=== PATIENT | male | born 1955 | race Hispanic/Latino ===

== ENCOUNTER 2017-12-16 22:24 | Emergency (ER) | payer MEDICARE, BC ==
[2017-12-16 22:35] VITALS: BP 150/84; RESP 18; TEMP 97.2; O2SAT 99
--- NOTE | 2017-12-16 23:10 | ED PDOC ---
- ECG O2 Sat by Pulse Oximetry: 99 Disposition - Disposition
--- NOTE | 2017-12-16 23:23 | ED PDOC ---
HPI: Psych/Substance Abuse Time Seen by Provider: 12/16/17 22:54 Chief Complaint (Nursing): Anxiety Chief Complaint (Provider): Anxiety History Per: Patient History/Exam Limitations: no limitations Onset/Duration Of Symptoms: Other (x1 week) Current Symptoms Are (Timing): Still Present Associated Symptoms: Anxiety. denies: Depression, Suicidal Thoughts Additional Complaint(s): 62 year old male presents to the ED complaining of anxiety for 1 week. Patient reports he feels anxious and suffers from anxiety for many years. He states he took Klonopin in the past but was recently prescribed Valium which he is taking daily but did not take it today. Denies Chest pain, Shortness of breath, headache, fever, SI, HI, or depression. He reports he has been hospitalized for psychiatric problems and suicidal behavior and indicates he lives by himself which contributes to his anxiety. PMD: Dr. Edwards Past Medical History Reviewed: Historical Data, Nursing Documentation, Vital Signs Vital Signs: Last Vital Signs Temp 97.2 F L 12/16/17 22:32 Pulse 111 H 12/16/17 22:32 Resp 18 12/16/17 22:32 BP 150/84 12/16/17 22:32 Pulse Ox 99 12/16/17 23:10 - Medical History PMH: Anxiety, Depression, HTN - Surgical History Surgical History: Appendectomy - Family History Family History: States: Unknown Family Hx - Social History Current smoker - smoking cessation education provided: No Alcohol: None Drugs: Denies - Allergies Allergies/Adverse Reactions: Allergies Allergy/AdvReac Type Severity Reaction Status Date / Time No Known Allergies Allergy Verified 12/16/17 22:32 Review of Systems ROS Statement: Except As Marked, All Systems Reviewed And Found Negative Constitutional: Negative for: Fever Cardiovascular: Negative for: Chest Pain Respiratory: Negative for: Shortness of Breath Neurological: Negative for: Headache Psych: Positive for: Anxiety. Negative for: Suicidal ideation, Other ( Homicidal ideation) Physical Exam - Reviewed Nursing Documentation Reviewed: Yes Vital Signs Reviewed: Yes - Physical Exam Appears: Positive for: Non-toxic, No Acute Distress Head Exam: Positive for: ATRAUMATIC, NORMAL INSPECTION, NORMOCEPHALIC Skin: Positive for: Normal Color, Warm, Dry Eye Exam: Positive for: Normal appearance Neck: Positive for: Normal, Painless ROM Cardiovascular/Chest: Positive for: Regular Rate, Rhythm. Negative for: Tachycardia (mild) Respiratory: Positive for: Normal Breath Sounds. Negative for: Wheezing, Respiratory Distress Extremity: Positive for: Normal ROM Neurologic/Psych: Positive for: Alert, Oriented, Gait (steady). Negative for: Motor/Sensory Deficits - ECG O2 Sat by Pulse Oximetry: 99 (RA) Pulse Ox Interpretation: Normal - Progress Re-evaluation Time: 00:35 Condition: Re-examined, Improved Medical Decision Making Medical Decision Making: Initial Impression: Anxiety Initial Plan: --ECG --Crisis --Valium 10mg PO Patient came by ambulance but ambulated into the emergency department. 2129 Patient refuses EKG. 29 Patient is cleared by crisis. 29 Patient is stable for discharge. Patient given discharge instructions. Patient understands and agrees with discharge plan. All questions and concerns addressed. Patient has no questions or concerns. Patient would like to be discharged. Scribe Attestation: Documented by Tutu Junior acting as a scribe for Mishel Bustos MD. Provider Scribe Attestation: All medical record entries made by the Scribe were at my direction and personally dictated by me. I have reviewed the chart and agree that the record accurately reflects my personal performance of the history, physical exam, medical decision making, and the department course for this patient. I have also personally directed, reviewed, and agree with the discharge instructions and disposition. Disposition - Clinical Impression Clinical Impression: Anxiety - Patient ED Disposition Is Patient to be Admitted: No Doctor Will See Patient In The: Office Counseled Patient/Family Regarding: Studies Performed, Diagnosis, Need For Followup - Disposition Referrals: [facility] [Outside] Disposition: Routine/Home Disposition Time: 00:37 Condition: GOOD Additional Instructions: PATRIC CHAHAL, thank you for letting us take care of you today. Your provider was Mishel Bustos MD and you were treated for PSYCH EVAL. The emergency medical care you received today was directed at your acute symptoms. If you were prescribed any medication, please fill it and take as directed. It may take several days for your symptoms to resolve. Return to the Emergency Department if your symptoms worsen, do not improve, or if you have any other problems. Please contact your doctor or call one of the physicians/clinics you have been referred to that are listed on the Patient Visit Information form that is included in your discharge packet. Bring any paperwork you were given at discharge with you along with any medications you are taking to your follow up visit. Our treatment cannot replace ongoing medical care by a primary care provider outside of the emergency department. Thank you for allowing the [facility] team to be part of your care today. If you had an X-Ray or CT scan: A Radiologist will review the ED reading if any change in treatment is needed we will contact you. If you had a blood, urine, or wound culture: It will take several days for the results, if any change in treatment is needed we will contact you. If you had an STI test: It will take 48 hours for the results. Please call after 1 week if you have not heard back. Instructions: Anxiety, Adult (DC)
[2017-12-17 00:50] VITALS: PULSE 85
== END 2017-12-17 01:06 | disposition home or self-care (01) ==
LOC: H.ER 22:24
DX: F41.9 Anxiety disorder, unspecified (principal); I10 Essential (primary) hypertension; Z86.59 Personal history of other mental and behavioral disorders

== ENCOUNTER 2017-12-19 05:04 | Inpatient (IN) | payer BC, MEDICARE ==
[2017-12-19] MEDS ORDERED: Apap-Butalbital-Caffeine 325-50-40mg Tab PO STA (05:40)
--- NOTE | 2017-12-19 06:11 | ED PDOC ---
HPI: Psych/Substance Abuse Time Seen by Provider: 12/19/17 05:10 Chief Complaint (Nursing): Psychiatric Evaluation Chief Complaint (Provider): Crisis evaluation History Per: Patient History/Exam Limitations: no limitations Onset/Duration Of Symptoms: Hrs Additional Complaint(s): Saeid Gillette is a 62 year old male, with a past medical history of anxiety and migraines, who was brought to the emergency department by EMS after he made suicidal statements prior to arrival. Patient presents to the emergency department with scattered and fragmented thoughts. He is rambling about his who he states is psychiatrically ill and is missing. Patient states he's been calling [employer] ([email or web address] for the last 9 days asking for help. Tonight patient was reported knocking in neighbors home at 04:30 and made a suicidal statement which he states only did out of frustration. No other medical complaints. Of note, patient was seen for a similar presentation x3 days ago. PMD: None provided. Past Medical History Reviewed: Historical Data, Nursing Documentation, Vital Signs Vital Signs: Last Vital Signs Temp 98.8 F 12/19/17 05:06 Pulse 108 H 12/19/17 05:06 Resp 21 12/19/17 05:06 BP 167/90 H 12/19/17 05:06 Pulse Ox 98 12/19/17 05:06 - Medical History PMH: Anxiety, Depression, HTN, Migraine Denies: Diabetes, Hepatitis, HIV, Seizures, Sexually Transmitted Disease - Surgical History Surgical History: Appendectomy - Family History Family History: States: Unknown Family Hx - Social History Current smoker - smoking cessation education provided: No Alcohol: None Drugs: Denies - Allergies Allergies/Adverse Reactions: Allergies Allergy/AdvReac Type Severity Reaction Status Date / Time No Known Allergies Allergy Verified 12/16/17 22:32 Review of Systems ROS Statement: Except As Marked, All Systems Reviewed And Found Negative Psych: Positive for: Suicidal ideation (possible) Physical Exam - Reviewed Nursing Documentation Reviewed: Yes Vital Signs Reviewed: Yes - Physical Exam Appears: Positive for: No Acute Distress (poor state of hygiene) Head Exam: Positive for: ATRAUMATIC, NORMAL INSPECTION, NORMOCEPHALIC Skin: Positive for: Normal Color, Warm, Dry Eye Exam: Positive for: Normal appearance, EOMI, PERRL Neck: Positive for: Painless ROM Cardiovascular/Chest: Positive for: Regular Rate, Rhythm. Negative for: Murmur Respiratory: Positive for: Normal Breath Sounds. Negative for: Respiratory Distress Gastrointestinal/Abdominal: Positive for: Normal Exam, Soft. Negative for: Tenderness Back: Positive for: Normal Inspection Extremity: Positive for: Normal ROM (upper and lower extremities). Negative for : Deformity, Swelling Neurologic/Psych: Positive for: Alert, Oriented - ECG O2 Sat by Pulse Oximetry: 98 (RA) Pulse Ox Interpretation: Normal Medical Decision Making Medical Decision Making: Time: 05:10 Initial Impression: 62 y/o male with possible delusional thoughts Initial Plan: --EKG --Alcohol serum --CMP --Drug screen, urine --Crisis evaluation --Urine dipstick --CBC w/ differential --Fioricet 1 tab PO --Valium 10 mg PO --Urinalysis --Reevaluation 07:00 -Patient will be signed out to Dr. Umana. ----- Scribe Attestation: Documented by Valentino Mccollum, acting as a scribe for Storm Mcgraw MD. Provider Scribe Attestation: All medical record entries made by the Scribe were at my direction and personally dictated by me. I have reviewed the chart and agree that the record accurately reflects my personal performance of the history, physical exam, medical decision making, and the department course for this patient. I have also personally directed, reviewed, and agree with the discharge instructions and disposition. Disposition - Clinical Impression Clinical Impression: Delusional disorder - Patient ED Disposition Is Patient to be Admitted: Transfer of Care - Disposition Disposition: Transfer of Care Disposition Time: 07:00 Condition: FAIR Forms: [facility] (Macedonian) Patient Signed Over To: Kiran Umana III
[2017-12-19] MEDS ORDERED: Apap-Butalbital-Caffeine 325-50-40mg Tab ONE (06:35)
--- NOTE | 2017-12-19 06:58 | ED PDOC ---
- Laboratory Results Result Diagrams: 12/19/17 06:22 12/19/17 06:22 - ECG O2 Sat by Pulse Oximetry: 98 (RA) Medical Decision Making Medical Decision Making: received 7am pending crisis evaluation medically stable for crisis evaluation/ admission 830a per crisis will be screened by [facility] labs again reviewed and unremarkable CXR negative per radiologist Patient remains anxious, labile mood, required additional dose benzo 140pm for anxiolysis. [facility] screen performed but patient signed into 3N for voluntary stay, admit Dr Tovar per dye house worker Disposition - Clinical Impression Clinical Impression: Psychosis - POA Present On Arrival: None - Disposition Disposition: Admitted as In-Patient Disposition Time: 13:30 Condition: FAIR
[2017-12-19 07:08] LABS: BASO # 0.1 K/uL (0.0-0.2); BASO % 0.8 % (0.0-2.0); EOS # 0.3 K/uL (0.0-0.7); EOS % 3.1 % (0.0-4.0); HEMOGLOBIN 17.4 g/dL (12.0-18.0); LYMPH # 1.5 K/uL (1.0-4.3); LYMPH % 16.1 % (20.0-40.0); MEAN CORPUSCULAR HEMOGLOBIN 30.9 pg (27.0-31.0); MEAN CORPUSCULAR HGB CONC 34.7 g/dL (33.0-37.0); MONO # 0.6 K/uL (0.0-0.8); MONO % 6.6 % (0.0-10.0); NEUT # 6.6 K/uL (1.8-7.0); NEUT % 73.4 % (50.0-75.0); NRBC % 0.6 % (0.0-0.0); RBC 5.62 Mil/uL (4.40-5.90); RED CELL DISTRIBUTION WIDTH 13.6 % (11.5-14.5); WHITE BLOOD COUNT 9.1 K/uL (4.8-10.8)
[2017-12-19 07:15] LABS: ALB/GLOB RATIO 1.3 (1.0-2.1); ALBUMIN 4.5 g/dL (3.5-5.0); ALT/SGPT 25 U/L (21-72); AST/SGOT 32 U/L (17-59); BLOOD UREA NITROGEN 15 mg/dl (9-20); CALCIUM 10.4 mg/dL (8.4-10.2); GFR NON-AFRICAN AMERICAN > 60
--- NOTE | 2017-12-19 09:51 | CARD ---
APPROVED REPORT Date of service: 12/19/2017 EKG Measurement Heart [id number] <Conclusion> Sinus rhythm with frequent premature ventricular complexes Left axis deviation Abnormal ECG
--- NOTE | 2017-12-19 10:34 | RAD ---
Date of service: 12/19/2017 HISTORY: Medical clearance COMPARISON: No prior. FINDINGS: LUNGS: The lungs are well inflated and clear. PLEURA: No significant pleural effusion identified, no pneumothorax apparent. CARDIOVASCULAR: Normal. OSSEOUS STRUCTURES: No significant abnormalities. VISUALIZED UPPER ABDOMEN: Normal. OTHER FINDINGS: None. IMPRESSION: No acute findings.
[2017-12-19 11:01] LABS: URINE BILIRUBIN NEGATIVE (NEGATIVE); URINE BLOOD NEGATIVE (NEGATIVE); URINE CLARITY SLIGHTY-CLOUDY (Clear); URINE COLOR YELLOW (YELLOW); URINE GLUCOSE (UA) NEG (Normal); URINE LEUKOCYTE ESTERASE NEG Leu/uL (Negative); URINE PROTEIN 30 mg/dL (NEGATIVE); URINE UROBILINOGEN 0.2-1.0 mg/dL (0.2-1.0)
[2017-12-19 11:14] LABS: BARBITURATES, UR POSITIVE (NEGATIVE); BENZODIAZEPINES, UR POSITIVE (NEGATIVE); OPIATES, UR NEGATIVE (NEGATIVE); PHENCYCLIDINE, UR NEGATIVE (NEGATIVE)
[2017-12-19 15:46] VITALS: O2SAT 97
[2017-12-19] MEDS ORDERED: Magnesium Hydroxide Susp 30 ml UD PO PRN (17:06)
[2017-12-19] MEDS ORDERED: Alum-Mag Hydrox-Simethicone Susp (30 mL) PO PRN (17:06)
--- NOTE | 2017-12-19 17:55 | PCM.BM ---
Treatment Plan Problems - Problems identified on initial assessmt Problem 1 Date Initiated: 12/19/17 Assessment reference: NA Status: Active Problem 2 Date Initiated: 12/19/17 Assessment reference: NA Status: Active Problem 3 Date Initiated: 12/19/17 Assessment reference: NA Status: Active Problem 4 Date Initiated: 12/19/17 Assessment reference: NA Status: Active Treatment assets and liabiliti Patient Assests: cooperative, ADL independent, good support system Patient Liabilities: medical problems - Milieu Protocol Maintain good personal hygiene: daily Encourage regular showers, daily Remind patient to perform daily oral care, daily Assist patient to perform ADL's Maintain personal safety: every shift Educate patient to report safety concerns to staff, every shift Monitor environment for contraband/sharps Medication safety: Monitor for expected outcome, potential side effects: every shift, Assess barriers to learning: every shift, Assess readiness for medication education: every shift Family Contact Family involvement: Family/SO is involved
[2017-12-19] MEDS: Hydrocortisone 0.5% OINT TOP SCH (22:56)
[2017-12-20 06:22] LABS: HDL CHOLESTEROL 34 MG/DL (30-70)
[2017-12-20 06:33] LABS: LDL CHOLESTEROL 129 mg/dL (0-129)
[2017-12-20] MEDS: Hydrocortisone 0.5% OINT TOP SCH ×2 (08:11→21:51)
[2017-12-20] MEDS ORDERED: DiphenhydrAMINE 50 mg/ml Inj IM PRN (10:29)
[2017-12-20] MEDS ORDERED: ASPIRIN PO PRN (10:47)
[2017-12-20] MEDS ORDERED: BUTALBITAL PO PRN (10:47)
[2017-12-20] MEDS ORDERED: CAFFEINE PO PRN (10:47)
--- NOTE | 2017-12-20 10:47 | CP.PCM.CON ---
History of Present Illness - History of Present Illness History of Present Illness: Pt states that he would like to talk only about his medical condition so I could restart him on his meds . He denies having any Psychiatric condition. Hx also obtained from chart . Chief Complaint : referred by Psych for mgt of medical problems. HPI: 62 y/o gent with hx of HTN, Hyperlipidemia, Migraine BALL, Glaucoma, Acne Rosacea , Herpes labialis was brought in by EMS due to bizarre behaviour. Accdg to med records - he has been calling [place] police several times looking for his who he said had Psychiatric problems . He also had stated that he had some suicidal ideation. Patient denies any Psych problem and also denies any suicidal ideation. He states that he would like to be restarted on his home meds - he has a slight Migraine headache at present and would like some Fioricet. He denies any CP , no SOB, no abd pain, no focal neurologic deficit. he denies any other pain. Full Code , Surrogate Decision maker - Audra . He states he also has a daughter who lives on [address] PMD : Dr Edwards from [place] Review of Systems - Review of Systems All systems: reviewed and no additional remarkable complaints except - Constitutional Constitutional: Headache. absent: Chills, Fever, Weakness - EENT Eyes: absent: Change in Vision Nose/Mouth/Throat: absent: Nasal Congestion - Cardiovascular Cardiovascular: absent: Chest Pain, Palpitations - Respiratory Respiratory: absent: Cough, Dyspnea - Gastrointestinal Gastrointestinal: absent: Abdominal Pain, Diarrhea, Nausea, Vomiting - Genitourinary Genitourinary: absent: Dysuria, Hematuria, Urinary Hesitance - Musculoskeletal Musculoskeletal: absent: Abnormal Gait, Muscle Weakness - Integumentary Integumentary: Acne, Rash - Neurological Neurological: Headaches. absent: Focal Weakness, Syncope - Psychiatric Psychiatric: Behavioral Changes, Depression - Endocrine Endocrine: absent: Polydipsia, Polyphagia, Polyuria - Hematologic/Lymphatic Hematologic: absent: Easy Bleeding, Easy Bruising Past Patient History - Infectious Disease Hx of Infectious Diseases: None - Tetanus Immunizations Tetanus Immunization: Unknown - Past Medical History & Family History Past Medical History?: Yes Past Family History: Reviewed and not pertinent Pertinent Family History: Father - Alcoholic - Past Social History Smoking Status: Never Smoked Chewing Tobacco Use: No Cigar Use: No Occupation: owns a [employer] Alcohol: None Drugs: Denies Home Situation {Lives}: With Family - CARDIAC Hx Hypercholesterolemia: Yes Hx Hypertension: Yes - PULMONARY Hx Respiratory Disorders: No - NEUROLOGICAL Hx Neurological Disorder: No - HEENT Hx HEENT Problems: Yes Hx Glaucoma: Yes - RENAL Hx Chronic Kidney Disease: No - ENDOCRINE/METABOLIC Hx Endocrine Disorders: No - HEMATOLOGICAL/ONCOLOGICAL Hx Blood Disorders: No - INTEGUMENTARY Hx Dermatological Problems: Yes Other/Comment: Acne Rosacea - MUSCULOSKELETAL/RHEUMATOLOGICAL Hx Musculoskeletal Disorders: No Hx Falls: Yes (had fallen 10 days ago in [facility]) - GASTROINTESTINAL Hx Gastrointestinal Disorders: No - GENITOURINARY/GYNECOLOGICAL Hx Genitourinary Disorders: No - PSYCHIATRIC Hx Anxiety: Yes Hx Depression: Yes Hx Substance Use: No - SURGICAL HISTORY Hx Surgeries: Yes Hx Appendectomy: Yes Other/Comment: Septal Deviation Sx - ANESTHESIA Hx Anesthesia: Yes Hx Anesthesia Reactions: No Hx Malignant Hyperthermia: No Meds Allergies/Adverse Reactions: Allergies Allergy/AdvReac Type Severity Reaction Status Date / Time No Known Allergies Allergy Verified 12/19/17 15:57 - Medications Medications: Current Medications Acetaminophen (Tylenol 325mg Tab) 650 mg PO Q4 PRN PRN Reason: Pain, moderate (4-7) Acyclovir (Zovirax) 400 mg PO BID [facility] Last Admin: 12/20/17 08:09 Dose: 400 mg Al Hydrox/Mg Hydrox/Simethicone (Maalox Plus 30 Ml) 30 ml PO Q4 PRN PRN Reason: Dyspepsia Amlodipine Besylate (Norvasc) 5 mg PO DAILY [facility] Last Admin: 12/20/17 08:10 Dose: 5 mg Diphenhydramine HCl (Benadryl) 50 mg IM Q8 PRN PRN Reason: Agitation Diphenhydramine HCl (Benadryl) 50 mg PO Q8 PRN PRN Reason: Agitation Haloperidol (Haldol) 5 mg PO Q8 PRN PRN Reason: Agitation Haloperidol Lactate (Haldol) 5 mg IM Q8 PRN PRN Reason: Agitation Hydrocortisone (Hydrocortisone 0.5%) 1 applic TOP BID [facility] Last Admin: 12/20/17 08:11 Dose: 1 applic Lorazepam (Ativan) 1 mg PO Q12 [facility] Stop: 01/02/18 21:01 Last Admin: 12/20/17 08:08 Dose: 1 mg Lorazepam (Ativan) 2 mg IM Q8 PRN PRN Reason: Agitation Lorazepam (Ativan) 2 mg PO Q8 PRN PRN Reason: Agitation Losartan Potassium (Cozaar) 50 mg PO DAILY [facility] Last Admin: 12/20/17 08:13 Dose: 50 mg Magnesium Hydroxide (Milk Of Magnesia) 30 ml PO HS PRN PRN Reason: Constipation Risperidone (Risperdal M-Tab) 1 mg PO HS SUKHDEEP Physical Exam - Constitutional Appears: Unkempt, Other (rambled speech) - Head Exam Head Exam: NORMAL INSPECTION, NORMOCEPHALIC - Eye Exam Eye Exam: EOMI, Normal appearance Pupil Exam: NORMAL ACCOMODATION - ENT Exam ENT Exam: Mucous Membranes Moist, Normal External Ear Exam - Neck Exam Neck exam: Positive for: Full Rom. Negative for: Meningismus - Respiratory Exam Respiratory Exam: NORMAL BREATHING PATTERN. absent: Rales, Wheezes, Respiratory Distress - Cardiovascular Exam Cardiovascular Exam: REGULAR RHYTHM, +S1, +S2 - GI/Abdominal Exam GI & Abdominal Exam: Normal Bowel Sounds, Soft. absent: Tenderness - Extremities Exam Extremities exam: Positive for: full ROM, normal capillary refill, pedal pulses present. Negative for: calf tenderness, pedal edema - Back Exam Back exam: FULL ROM. absent: CVA tenderness (L), CVA tenderness (R), vertebral tenderness - Neurological Exam Neurological exam: Alert, CN II-XII Intact, Oriented x3, Reflexes Normal - Psychiatric Exam Psychiatric exam: Flat Affect - Skin Skin Exam: Dry, Normal Color, Warm Results - Vital Signs Recent Vital Signs: Last Vital Signs Temp 97.1 F L 12/20/17 06:00 Pulse 109 H 12/20/17 08:13 Resp 20 12/20/17 06:00 BP 137/90 12/20/17 08:13 Pulse Ox 97 12/19/17 15:45 - Labs Result Diagrams: 12/19/17 06:22 12/19/17 06:22 Labs: Laboratory Results - last 24 hr 12/19/17 12/19/17 12/19/17 06:34 10:40 10:40 POC Glucose (mg/dL) 98 Triglycerides Cholesterol LDL Cholesterol Direct HDL Cholesterol Urine Color Yellow Urine Clarity Slighty-cloudy Urine pH 5.0 Ur Specific Tiro 1.016 Urine Protein 30 Urine Glucose (UA) Neg Urine Ketones Negative Urine Blood Negative Urine Nitrate Negative Urine Bilirubin Negative Urine Urobilinogen 0.2-1.0 Ur Leukocyte Esterase Neg Urine RBC (Auto) < 1 Urine Microscopic WBC 1 Hyaline Casts 3-5 H Urine Opiates Screen Negative Urine Methadone Screen Negative Ur Barbiturates Screen Positive H Ur Phencyclidine Scrn Negative Ur Amphetamines Screen Negative U Benzodiazepines Scrn Positive U Oth Cocaine Metabols Negative U Cannabinoids Screen Negative 12/20/17 05:55 POC Glucose (mg/dL) Triglycerides 165 H Cholesterol 198 LDL Cholesterol Direct 129 HDL Cholesterol 34 Urine Color Urine Clarity Urine pH Ur Specific Tiro Urine Protein Urine Glucose (UA) Urine Ketones Urine Blood Urine Nitrate Urine Bilirubin Urine Urobilinogen Ur Leukocyte Esterase Urine RBC (Auto) Urine Microscopic WBC Hyaline Casts Urine Opiates Screen Urine Methadone Screen Ur Barbiturates Screen Ur Phencyclidine Scrn Ur Amphetamines Screen U Benzodiazepines Scrn U Oth Cocaine Metabols U Cannabinoids Screen - EKG Data EKG Interpreted by: Myself EKG shows normal: Sinus rhythm Rate: Normal - EKG Data Interpretation: Other (PVCs) - Imaging and Cardiology Chest x-ray Status: Report reviewed by me (Neg) Assessment & Plan (1) HTN (hypertension) Status: Chronic Comment: cont Norvasc , Losartan (2) Hyperlipidemia Status: Chronic Comment: cont Pravastatin and Tricor ( home meds) (3) Psychosis Status: Acute Comment: mgt as per Psych (4) Acne rosacea Status: Chronic Comment: Pt's family to bring in home med - facial cream. 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 d/c Zovirax
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
[2017-12-20] MEDS ORDERED: Venlafaxine 37.5 mg ER Cap PO SCH (13:30)
[2017-12-20] MEDS: BRINZOLAMIDE OU SCH ×2 (15:15→21:33)
[2017-12-20] MEDS: BRIMONIDINE OU SCH ×2 (15:15→21:33)
[2017-12-20] MEDS: Multivitamin With Minerals Tab PO SCH (15:17)
[2017-12-20] MEDS ORDERED: Artificial Tears Opht Soln OU PRN (15:17)
[2017-12-20] MEDS: Venlafaxine 150 mg ER Cap PO SCH (15:18)
[2017-12-20] MEDS: Venlafaxine 37.5 mg ER Cap PO SCH (15:25)
[2017-12-20] MEDS: Apap-Butalbital-Caffeine 325-50-40mg Tab PO PRN (19:39)
[2017-12-20] MEDS: Pravastatin Sodium 20 MG TAB PO SCH (21:12)
[2017-12-20] MEDS: Risperidone M tab 1 MG PO SCH (21:12)
[2017-12-20] MEDS: Latanoprost 0.005% Opht SOUTION OU SCH (21:32)
[2017-12-20] MEDS: Nasal Spray(Ocean spray) NAS PRN (21:35)
[2017-12-20] MEDS: SULFACETAMIDE SODIUM TOP SCH (21:38)
[2017-12-20] MEDS: IVERMECTIN TP SCH (21:38)
[2017-12-21] MEDS: Apap-Butalbital-Caffeine 325-50-40mg Tab PO PRN (03:31)
--- NOTE | 2017-12-21 04:08 | CP.PCM.PCO ---
Physician Communication Note - Physician Communication Note Physician Communication Note: paged by nurse, patient felt chest tightness/pain Assessment/Plan - Assessment and Plan (Free Text) Assessment: Patient seen and examined at bedside. In no acute distress, reports " I feel chest tightness and I feel nervous because two people in my family of heart attacks". Denies SOB, weakness, dizziness, sweating, nausea, vomiting or left arm pain. Slow deep breaths improved his symptoms. PE: in no acute distress, speaking in full sentences -Heart: normal S1 S2 -Lungs: clear to auscultation bilaterally -Neuro: AAO x 3, clear speech, CN II-XII intact P: EKG: accelerated junctional rhythm at 90 bpm, LAD, no significant ST-T changes -serial troponins ordered: 1st troponing negative -patient symptoms improved after EKG and blood draw -f/u serial troponins - Date & Time Date: 12/21/17 Time: 04:08
[2017-12-21] MEDS: Nasal Spray(Ocean spray) NAS PRN ×3 (04:12→21:25)
[2017-12-21] MEDS: Hydrocortisone 0.5% OINT TOP SCH ×2 (08:50→21:21)
[2017-12-21] MEDS: Multivitamin With Minerals Tab PO SCH (08:51)
[2017-12-21] MEDS: IRBESARTAN 150 MG PO SCH (08:52)
[2017-12-21] MEDS: Venlafaxine 150 mg ER Cap PO SCH (08:52)
[2017-12-21] MEDS: Venlafaxine 37.5 mg ER Cap PO SCH (08:52)
[2017-12-21] MEDS: BRIMONIDINE OU SCH ×2 (08:55→21:20)
[2017-12-21] MEDS: BRINZOLAMIDE OU SCH ×2 (08:55→21:20)
[2017-12-21] MEDS: IVERMECTIN TP SCH (09:50)
[2017-12-21] MEDS: SULFACETAMIDE SODIUM TOP SCH ×2 (09:52→21:24)
--- NOTE | 2017-12-21 17:08 | PCM.PYCHPN ---
Psychiatric Progress Note - Psychiatric Progress Note Patient seen today, length of contact: chart reviewed case discussed w/team Patient Chief Complaint: was feeling depressed and anxious had been drinking, now reports is starting feel calmer, last night 2.5 hours reportedly had verbal discussion with reportedly yesterday at visit, reportedly had visit today with reported as positive. admits that current medications are working, denies any notable side effects, denies dizziness falls etc yesterday admits that while sitting on bed slid off of bed to bottom with out "hard impact" denies injuring head, back.denies desire to change any rx denies any swelling of lips tongue difficulty chewing and swallowing. denies any shakes tremors denies hallucinations. staff report pt adherent with medication. pt remains on 1 to 1 for safety/falls. was seen walking about unit with one to one. pt denies need for antihistamines. reports generally 8 headache days per month, reported as baseline when queried as to how long he has been experiencing headaches he smiled stating for the past 28 years when asked as to what changed 28 years ago smiled and said I got . denies concerns for safety with . denies ill will. Problems Identified/Issues Discussed: alteration in mood Medical Problems: per chart Diagnostic Results: per psychiatry per medicine per nursing per social work per recreational therapy DSM 5 Symptoms Update: per chart Medication Change: No Medical Record Reviewed: Yes Consults ordered or reviewed: pt seen by hospitalist Mental Status Examination - Cognitive Function Orientation: Person, Place, Situation, Time Memory: Intact Attention: WNL Concentration: WNL Association: WNL Fund of Knowledge: WN Decription of patient's judgement and insights: impaired - Mood Mood: Depressed, Anxious, Other (Angry) Additional comments: somewhat improving - Affect Affect: Broad, Other - Speech Speech: Appropriate - Formal Thought Process Formal Thought Process: No Impairment - Homicidal Ideation Homicidal Ideation: No Goal/Treatment Plan - Goal/Treatment Plan Progress Toward Problem(s) and Goals/Treatment Plan: inpt milieu adjust meds per status maintain 1 to 1 for safety falls vital signs and clinical observation per protocol and per clinical status discharge planning in progress Estimated Date of D/C: 12/25/17 - Smoking Cessation Smoking Cessation Initiated: No Reason for not providing: defers
[2017-12-21] MEDS: Risperidone M tab 1 MG PO SCH (21:15)
[2017-12-21] MEDS: Pravastatin Sodium 20 MG TAB PO SCH (21:15)
[2017-12-21] MEDS: Latanoprost 0.005% Opht SOUTION OU SCH (21:19)
[2017-12-22] MEDS: Apap-Butalbital-Caffeine 325-50-40mg Tab PO PRN ×2 (07:47→16:01)
[2017-12-22] MEDS: Ergocalciferol 50,000 Intl Units Cap PO SCH (09:42)
[2017-12-22] MEDS: Venlafaxine 37.5 mg ER Cap PO SCH (09:43)
[2017-12-22] MEDS: Venlafaxine 150 mg ER Cap PO SCH (09:43)
[2017-12-22] MEDS: IRBESARTAN 150 MG PO SCH (09:44)
[2017-12-22] MEDS: BRINZOLAMIDE OU SCH (09:45)
[2017-12-22] MEDS: Hydrocortisone 0.5% OINT TOP SCH ×2 (09:45→18:04)
[2017-12-22] MEDS: BRIMONIDINE OU SCH (09:45)
[2017-12-22] MEDS: CENTRUM SILVER PO SCH (11:27)
--- NOTE | 2017-12-22 11:49 | PCM.PYCHPN ---
Psychiatric Progress Note - Psychiatric Progress Note Patient seen today, length of contact: chart reviewed case discussed w/team Patient Chief Complaint: feeling less depressed, reports slept better last night, denies needing ambien. pt reports appetite is good. denies difficulty breathing, swallowing. denies acute changes in vision. believes skin is clearing, denies complaints pain/ tingling-denies need for antiviral. denies dizziness falls. staff offered pt review unit base protocol as to the entering of patients' rooms, offering of food as others' needs may not allow for intake of certain foods. pt's medications were reviewed with pt as to reason, desired effects and possible side effects. reviewed with pt the use of lorazepam as for being for anxiety as well as for gradual titration as pt reportedly has a 16 year history of clonozepam and well as past reported use of lorazepam. pt was offered information by staff as the use of prns for fiuricet for reported hs of migrains -review staff requires to assess vital signs etc for possible interaction with medications. pt offered information as to how to report complaints concerns etc to staff-may use call lieberman, etc.. review use of 1 to 1 for safety redirection. pt gave expressed permission to speak with Clara via phone. reviewed with pt's current medications: effexor for both anxiety and depression, risperdal for mood, lorazepam for anxiety weaning off of reported long chain beamer benzodiazepine use ( corroborrates that pt has long standing hx of clonozepam use as well as reported past hx of lorazepam use-reviewed that benzodiazepines are generally used as a bridge-clonozepam does not have to be used as part of weaning varies according to pt situtation), pt request team to be reminded of pt's reported hx of clonozepam use as well reported hs of "addiction of lorazpam". review pt's labs including lipids and glucose as well as bun/creatinine, gfr. review calcium level. review pt is current receiving topical creamx 2, clarified that previously reported creams (rx's) were for only on month (10/28/17 without refills). review with pt is receiving mvi as well as vit d. review that vitd level , b12 and folate can be obtained. pt has prostate ca per /pt.-reportedly will follow up with urologist. verbally agreeable to provide names of opthalmologist, cloth measurer machine, nephrology and newspaper clipper to medical team for review. will obtain psa level but explained to pt that this is used generally as a marker would require previous levels for comparison. pt denies any current urinary symptoms. medications laboratory results reviewed at length with pt's wfe(1.5 hours). review with that if there is no apparent reaction of some kind benadryl not indicated as well as atarax expecially in light of pt's reported hx of glaucoma. review with that team will re evaluate pt in am, any potential abnormalities will be reviewed by team and possible hospitalist (review with that hospitalist rotate so the name of one in am could not be provided by could call if desired and per pt's consent). review calcium of 10.4 ( normal higher 10.2) review with not to give pt any supplements unless directed by medical providers. review will obtain repeat cmp to re evaluate mildly elevated calcium. verbally agreeable to plan , the name of this automobile and property underwriter and title. Problems Identified/Issues Discussed: alteration in mood Medical Problems: per chart Diagnostic Results: per psychiatry per medicine per nursing per social work per recreational therapy Medication Change: No Medical Record Reviewed: Yes Consults ordered or reviewed: hospitalist Mental Status Examination - Cognitive Function Orientation: Person, Place, Situation, Time Memory: Intact Attention: WNL Concentration: WNL Association: WNL Fund of Knowledge: WN Decription of patient's judgement and insights: impaired - Mood Mood: Depressed, Anxious, Other (Angry) Additional comments: reportedly less - Affect Affect: Broad, Other - Speech Speech: Appropriate - Formal Thought Process Formal Thought Process: No Impairment - Homicidal Ideation Homicidal Ideation: No Goal/Treatment Plan - Goal/Treatment Plan Progress Toward Problem(s) and Goals/Treatment Plan: inpt milieu adjust meds per status maintain 1 to 1 for safety falls see previous section related to discussion with pt and -pt did explicit state thank you to this automobile and property underwriter and staff for be rendered to date obtain b12, folate, vit d level repeat cmp-team to request hospitalist to follow up on laboratory results vital signs and clinical observation per protocol and per clinical status discharge planning in progress Estimated Date of D/C: 12/25/17 - Smoking Cessation Smoking Cessation Initiated: No Reason for not providing: pt defers
[2017-12-22] MEDS: SULFACETAMIDE SODIUM TOP SCH ×4 (14:07→21:27)
--- NOTE | 2017-12-22 20:56 | PCM.FALL ---
Post Fall Progress Note - Post Fall Fall Date: 12/22/17 Fall Time: 19:50 Description of Fall: Called to evaluate patient who was found sitting on the floor in the bathroom stating that he fell. The patient referred that while standing he felt dizzy and fell, hitting the the right side of his head. He stated no loss of consciousness and he got up to his feet by himself and walked to chair . No dizziness at this exam. Exam: The patient is awake, alert, oriented. No bleed ing nor bruises seen. Head: No erythema, swelling or pain to the head. No neck pain on rotation nor flexion. Chest: No sign of contusion. No respiratory distress CVS: RRR Abdomen: Nontender Extremity: No cuts nor bruises. no sign of contusion Neuro: Non Focal I&P Fall with no injuries noted at this time Continue 1:1 observation No new treatment. - Post Fall Exam Vital Sign: Temp Pulse Resp BP Pulse Ox 97.6 F 110 H 20 158/83 H 97 12/22/17 16:10 12/22/17 16:10 12/22/17 16:10 12/22/17 16:10 12/19/17 15:45 Eye Exam: Positive for: Pupils equal, Pupils reactive
[2017-12-22] MEDS ORDERED: Apap-Butalbital-Caffeine 325-50-40mg Tab PO STA (20:57)
[2017-12-22] MEDS: Risperidone M tab 1 MG PO SCH (21:17)
[2017-12-22] MEDS: Latanoprost 0.005% Opht SOUTION OU SCH (21:18)
[2017-12-22] MEDS: Pravastatin Sodium 20 MG TAB PO SCH (21:19)
[2017-12-22] MEDS: IVERMECTIN TP SCH (21:27)
[2017-12-23] MEDS ORDERED: Apap-Butalbital-Caffeine 325-50-40mg Tab PO STA (03:53)
--- NOTE | 2017-12-23 06:46 | CARD ---
APPROVED REPORT Date of service: 12/21/2017 EKG Measurement Heart [id number] <Conclusion> Normal sinus rhythm Left axis deviation Inferior infarct, age undetermined Abnormal ECG
[2017-12-23 06:53] LABS: CALCIUM 10.6 mg/dL (8.4-10.2)
--- NOTE | 2017-12-23 09:16 | CARD ---
APPROVED REPORT Date of service: 12/23/2017 EKG Measurement Heart [id number] <Conclusion> Sinus rhythm with occasional premature ventricular complexes low voltage Otherwise normal ECG
[2017-12-23] MEDS: IRBESARTAN 150 MG PO SCH (09:20)
[2017-12-23] MEDS: Venlafaxine 37.5 mg ER Cap PO SCH (09:21)
[2017-12-23] MEDS: Ergocalciferol 50,000 Intl Units Cap PO SCH (09:21)
[2017-12-23] MEDS: Venlafaxine 150 mg ER Cap PO SCH (09:21)
[2017-12-23] MEDS: CENTRUM SILVER PO SCH (09:23)
[2017-12-23] MEDS: Hydrocortisone 0.5% OINT TOP SCH ×2 (09:24→17:45)
[2017-12-23] MEDS: BRINZOLAMIDE OU SCH ×3 (09:26→17:50)
[2017-12-23] MEDS: BRIMONIDINE OU SCH ×3 (09:26→17:50)
[2017-12-23] MEDS: SULFACETAMIDE SODIUM TOP SCH ×2 (09:38→21:21)
--- NOTE | 2017-12-23 12:03 | PCM.PYCHPN ---
Psychiatric Progress Note - Psychiatric Progress Note Patient seen today, length of contact: Pt evaluated, case discussed w/ team, chart reviewed Patient Chief Complaint: "I'm going to adilia all of you." Problems Identified/Issues Discussed: Patient has been verbally aggressive and threatening towards staff. He is labile/easily irritated and considers neutral interactions with people as disrespectful and is unusually easily offended. He is intermittently cooperative w/ talking w/ commercial real estate underwriter; only willing to talk at the precise moment he is agreeable to talking. He continues to threaten to adilia the commercial real estate underwriter, for unclear reasons. He just states "I'm going to adilia you!!!." He denies AH/VH/SI/ HI. He submitted a 48 hr letter requesting to be discharged and was informed that he will be screened for involuntary psychiatric admission. Medication Change: Yes (Increase Risperdal to 2 mg PO HS) Medical Record Reviewed: Yes Consults ordered or reviewed: Medicine consult Mental Status Examination - Cognitive Function Orientation: Person, Place, Situation, Time Memory: Intact Attention: WNL Concentration: WNL Association: WNL Fund of Knowledge: [facility] Decription of patient's judgement and insights: Poor I/J - Mood Mood: Depressed, Anxious, Other (Angry) - Affect Affect: Broad, Other - Speech Speech: Appropriate - Formal Thought Process Formal Thought Process: Paranoia, Loosening of associations Psychotic Thoughts and Behaviors: Denies AH/VH, but patient appears to be paranoid - Suicidal Ideation Suicidal Ideation: No - Homicidal Ideation Homicidal Ideation: No Goal/Treatment Plan - Goal/Treatment Plan Need for Continued Stay: Remain at risks for inpatient hospitalization, Discharge may exacerbated symptoms Progress Toward Problem(s) and Goals/Treatment Plan: Psychosis NOS; Major Depressive Disorder (r/o MDD w/ psychotic features) -1:1 for safety -Medicine consult -Ativan for anxiety and agitation -Increase Risperdal to 2 mg PO HS -Individual and group therapy -Disposition planning- patient to be screened for involuntary psychiatric admission Estimated Date of D/C: 12/25/17
[2017-12-23] MEDS: Apap-Butalbital-Caffeine 325-50-40mg Tab PO PRN (14:02)
[2017-12-23] MEDS: Pravastatin Sodium 20 MG TAB PO SCH (21:13)
[2017-12-23] MEDS: Risperidone M TAB 2 MG PO SCH (21:13)
[2017-12-23] MEDS: Latanoprost 0.005% Opht SOUTION OU SCH (21:14)
[2017-12-23] MEDS: IVERMECTIN TP SCH (21:19)
[2017-12-24 08:43] LABS: BASO # 0.1 K/uL (0.0-0.2); EOS # 0.5 K/uL (0.0-0.7); EOS % 7.3 % (0.0-4.0); LYMPH # 1.9 K/uL (1.0-4.3); LYMPH % 25.8 % (20.0-40.0); MEAN CELL VOLUME 89.8 fl (80.0-94.0); MEAN CORPUSCULAR HEMOGLOBIN 30.6 pg (27.0-31.0); MEAN PLATELET VOLUME 8.4 fl (7.2-11.7); MONO # 0.6 K/uL (0.0-0.8); MONO % 7.6 % (0.0-10.0); NEUT # 4.3 K/uL (1.8-7.0); NEUT % 58.3 % (50.0-75.0); NRBC % 0.1 % (0.0-0.0); RBC 5.56 Mil/uL (4.40-5.90); RED CELL DISTRIBUTION WIDTH 13.7 % (11.5-14.5); WHITE BLOOD COUNT 7.3 K/uL (4.8-10.8)
[2017-12-24] MEDS: CENTRUM SILVER PO SCH (08:45)
[2017-12-24] MEDS: Venlafaxine 150 mg ER Cap PO SCH (08:47)
[2017-12-24] MEDS: Hydrocortisone 0.5% OINT TOP SCH ×2 (08:49→16:25)
[2017-12-24] MEDS: BRIMONIDINE OU SCH ×2 (08:50→16:25)
[2017-12-24] MEDS: BRINZOLAMIDE OU SCH ×2 (08:50→16:25)
[2017-12-24] MEDS: IRBESARTAN 150 MG PO SCH (08:53)
[2017-12-24] MEDS: SULFACETAMIDE SODIUM TOP SCH ×2 (08:55→21:15)
[2017-12-24 08:58] LABS: ALB/GLOB RATIO 1.2 (1.0-2.1); ALBUMIN 4.6 g/dL (3.5-5.0); CALCIUM 10.6 mg/dL (8.4-10.2)
[2017-12-24] MEDS: Venlafaxine 37.5 mg ER Cap PO SCH (10:32)
--- NOTE | 2017-12-24 12:01 | PCM.PYCHPN ---
Psychiatric Progress Note - Psychiatric Progress Note Patient seen today, length of contact: Pt evaluated, case discussed w/ team, chart reviewed Patient Chief Complaint: "I'm going to adilia all of you." Problems Identified/Issues Discussed: Patient continues to be irritable, labile and paranoid. P[place] [facility] Medication Change: No Medical Record Reviewed: Yes Consults ordered or reviewed: Medicine consult Mental Status Examination - Cognitive Function Orientation: Person, Place, Situation, Time Memory: Intact Attention: WNL Concentration: WNL Association: WNL Fund of Knowledge: [facility] Decription of patient's judgement and insights: Poor I/J - Mood Mood: Depressed, Anxious, Other (Angry) - Affect Affect: Broad, Other - Speech Speech: Appropriate - Formal Thought Process Formal Thought Process: Paranoia, Loosening of associations Psychotic Thoughts and Behaviors: Denies AH/VH, but patient appears to be paranoid - Suicidal Ideation Suicidal Ideation: No - Homicidal Ideation Homicidal Ideation: No Goal/Treatment Plan - Goal/Treatment Plan Need for Continued Stay: Remain at risks for inpatient hospitalization, Discharge may exacerbated symptoms Progress Toward Problem(s) and Goals/Treatment Plan: Psychosis NOS; Major Depressive Disorder (r/o MDD w/ psychotic features) -1:1 for safety -Medicine consult -Ativan for anxiety and agitation -Continue Risperdal 2 mg PO HS -Individual and group therapy -Disposition planning- patient to be screened for involuntary psychiatric admission Estimated Date of D/C: 12/25/17
[2017-12-24 16:26] VITALS: RESP 20
[2017-12-24] MEDS: Apap-Butalbital-Caffeine 325-50-40mg Tab PO PRN (20:14)
[2017-12-24] MEDS: Risperidone M TAB 2 MG PO SCH (21:10)
[2017-12-24] MEDS: Pravastatin Sodium 20 MG TAB PO SCH (21:10)
[2017-12-24] MEDS: Latanoprost 0.005% Opht SOUTION OU SCH (21:13)
[2017-12-24] MEDS: IVERMECTIN TP SCH (21:17)
[2017-12-25] MEDS: CENTRUM SILVER PO SCH (08:50)
[2017-12-25] MEDS: Nasal Spray(Ocean spray) NAS PRN (08:52)
[2017-12-25] MEDS: Hydrocortisone 0.5% OINT TOP SCH ×2 (08:55→17:17)
[2017-12-25] MEDS: Venlafaxine 150 mg ER Cap PO SCH (08:56)
[2017-12-25] MEDS: IRBESARTAN 150 MG PO SCH (09:02)
[2017-12-25] MEDS: Venlafaxine 37.5 mg ER Cap PO SCH (09:06)
--- NOTE | 2017-12-25 10:49 | PCM.PYCHPN ---
Psychiatric Progress Note - Psychiatric Progress Note Patient seen today, length of contact: Pt evaluated, case discussed w/ team, chart reviewed Patient Chief Complaint: "I'm going to adilia all of you." Problems Identified/Issues Discussed: Patient was screened by [facility], accepted for involuntary psychiatric commitment, pending bed and transfer. Patient continues to be irritable, labile and paranoid w/ loose, disorganized speech. He continues to threaten to adilia the play writer and the hospital for unclear reasons. He discussed how he feels justified in threatening to harm various staff members on the unit and states that he would do it again. Patient continues to need 1:1 for monitoring. Medication Change: Yes (Increase Risperdal) Medical Record Reviewed: Yes Consults ordered or reviewed: Medicine consult Mental Status Examination - Cognitive Function Orientation: Person, Place, Situation, Time Memory: Intact Attention: WNL Concentration: WNL Association: Loose Fund of Knowledge: WNL Decription of patient's judgement and insights: Poor I/J - Mood Mood: Depressed, Anxious, Other (Angry) - Affect Affect: Broad, Other - Speech Speech: Appropriate - Formal Thought Process Formal Thought Process: Paranoia, Loosening of associations Psychotic Thoughts and Behaviors: Denies AH/VH, but patient appears to be paranoid - Suicidal Ideation Suicidal Ideation: No - Homicidal Ideation Homicidal Ideation: No Goal/Treatment Plan - Goal/Treatment Plan Need for Continued Stay: Remain at risks for inpatient hospitalization, Discharge may exacerbated symptoms Progress Toward Problem(s) and Goals/Treatment Plan: Psychosis NOS; Major Depressive Disorder (r/o MDD w/ psychotic features) -1:1 for safety -Medicine consult -Ativan for anxiety and agitation -Increase Risperdal -Individual and group therapy -Disposition planning- patient screened and accepted for involuntary psychiatric admission, pending bed and transfer Estimated Date of D/C: 12/26/17
[2017-12-25] MEDS: BRINZOLAMIDE OU SCH ×3 (12:56→17:21)
[2017-12-25] MEDS: BRIMONIDINE OU SCH ×3 (12:56→17:21)
[2017-12-25] MEDS: SULFACETAMIDE SODIUM TOP SCH ×2 (12:57→21:46)
[2017-12-25 16:23] VITALS: TEMP 98.6
[2017-12-25] MEDS: Pravastatin Sodium 20 MG TAB PO SCH (21:27)
[2017-12-25] MEDS: IVERMECTIN TP SCH (21:30)
[2017-12-25] MEDS: Latanoprost 0.005% Opht SOUTION OU SCH (22:09)
[2017-12-26] MEDS: BRINZOLAMIDE OU SCH (09:02)
[2017-12-26] MEDS: BRIMONIDINE OU SCH (09:02)
[2017-12-26] MEDS: Hydrocortisone 0.5% OINT TOP SCH (09:04)
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
[2017-12-26] MEDS: CENTRUM SILVER PO SCH (09:57)
[2017-12-26] MEDS: IRBESARTAN 150 MG PO SCH (09:57)
[2017-12-26] MEDS: Venlafaxine 37.5 mg ER Cap PO SCH (09:59)
[2017-12-26] MEDS: Venlafaxine 150 mg ER Cap PO SCH (10:00)
[2017-12-26] MEDS: SULFACETAMIDE SODIUM TOP SCH (10:01)
[2017-12-26 10:02] VITALS: BP 155/91; PULSE 100
[2017-12-26] MEDS ORDERED: DiphenhydrAMINE 50 mg/ml Inj IM PRN ×2 (11:15→11:16)
== END 2017-12-26 13:15 | DRG 885 ==
LOC: H.ER 05:04 → H.ERHOLD 14:43 → H.STEP 16:24
PROVIDERS: ADMIT Psychiatry & Neurology Psychiatry; ATTEND Psychiatry & Neurology Psychiatry
PROC: GZHZZZZ Group Psychotherapy (ICD-10-PCS; principal; 2017-12-19)
PROC: GZ58ZZZ Individual Psychotherapy, Cognitive-Behavioral (ICD-10-PCS; 2017-12-19)
DX: F29 Unspecified psychosis not due to a substance or known physiological condition (principal); R45.851 Suicidal ideations; F32.9 Major depressive disorder, single episode, unspecified; F41.9 Anxiety disorder, unspecified; F13.90 Sedative, hypnotic, or anxiolytic use, unspecified, uncomplicated; E78.5 Hyperlipidemia, unspecified; E78.00 Pure hypercholesterolemia, unspecified; I10 Essential (primary) hypertension; G43.909 Migraine, unspecified, not intractable, without status migrainosus; L71.8 Other rosacea; H40.9 Unspecified glaucoma; Z85.46 Personal history of malignant neoplasm of prostate